=== PATIENT | male | born 1985 | race Caucasian/White ===

== ENCOUNTER 2019-11-11 20:40 | Emergency (ER) | payer MEDICAID ==
[~2019-11-11] VITALS: Ht 177.8 cm; Wt 79.5 kg
[2019-11-11] MEDS ORDERED: ALPR1TAB7 PO (20:56)
[2019-11-11] MEDS ORDERED: GABA-531 PO (20:56)
[2019-11-11 22:38] VITALS: BP 133/80
== END 2019-11-11 22:57 | disposition left against medical advice (07) ==
LOC: EMS 20:43
DX: F41.9 Anxiety disorder, unspecified (principal); Z53.21 Procedure and treatment not carried out due to patient leaving prior to being seen by health care provider

== ENCOUNTER 2019-11-12 13:07 | Emergency (ER) | payer MEDICAID ==
[~2019-11-12] VITALS: Ht 177.8 cm; Wt 79.5 kg
[~2019-11-12 13:07] MED LIST: ALPR1TAB7 PO; GABA-531 PO
[2019-11-12 15:35] VITALS: BP 125/71
== END 2019-11-12 15:47 | disposition home or self-care (01) ==
LOC: EMS 13:07
DX: F41.9 Anxiety disorder, unspecified (principal); F12.90 Cannabis use, unspecified, uncomplicated; Z76.0 Encounter for issue of repeat prescription; Z98.890 Other specified postprocedural states; Z79.899 Other long term (current) drug therapy